=== PATIENT | female | born 1950 | race African-American/Black ===

== ENCOUNTER 2017-08-18 17:01 | Outpatient (CLI) | payer OTHER ==
[2014-02-26 17:07] VITALS: BP 169/91
--- NOTE | 2017-08-18 17:47 | Diagnostic Imaging Report ---
SIOMARA EVANS [facility] [address] [facility] [address] [place] [address]. [id number] Report Submission Date: Aug 18, 2017 5:30:08 PM CDT Patient Study Name: GERGG MCHUGH Date: Aug 18, 2017 5:09:16 PM CDT Modality Type: DX Gender: F Description: SPINE : 54 Institution: [facility] Physician: SIOMARA EVANS Cervical spine History: C-SPINE, NECK PAIN THAT RADIATES TO THE RIGHT SIDE FOR ABOUT 3 MONTHS, NO KNOWN INJURY, FUSION IN 2007 (Hx) / ITS.REASON neck pain; fusion 2007 AP, lateral and odontoid projections of the cervical spine demonstrate anterior fusion with presence of interbody fusion plugs at C4 through C6. The fusion does appear to be solid and the hardware is intact. Alignment of the cervical spine is normal. There is multilevel facet arthropathy. Spinous processes are intact. The dens is intact. Impression: Status post anterior fusion from C4 through C6. The fusion does appear to be solid and the hardware is intact. Multilevel facet arthropathy. Electronically signed on Aug 18, 2017 5:30:08 PM CDT by: Lia NOONAN
== END 2017-08-18 17:02 ==
LOC: RAD 17:01
PROVIDERS: ATTEND Family Medicine
DX: M54.2 Cervicalgia (principal)
CPT/HCPCS: 72040

== ENCOUNTER 2019-02-20 08:21 | Day surgery (SDC) | payer MEDICARE, OTHER ==
[2014-02-26 17:07] VITALS: BP 169/91
[2019-02-20] MEDS ORDERED: LIDOCAINE HCL 2% PF 100MG/5ML VIAL IJ ONE (08:48)
[2019-02-20] MEDS ORDERED: PROPOFOL 200 MG/20 ML VIAL IV ONE (08:48)
[2019-02-20] MEDS ORDERED: LACTATED RINGERS 1,000 ML IV.SOLN IV ONE (08:48)
--- NOTE | 2019-02-24 10:35 | GI Report ---
DATE OF PROCEDURE: 02/20/2019 REFERRING PHYSICIAN: Dr. Campbell. PROCEDURE PERFORMED: Colonoscopy and polypectomy. SURGEON: Sergio Stephens M.D., [place]. INDICATION FOR PROCEDURE: 68-year-old woman referred for screening. She did have an uncle who had colon cancer. The patient thinks she may have had a polyp many years ago we dont have that report. She denies any change of stools or bleeding. She has had abdominal surgery, a hysterectomy. She has been stable cardiopulmonary-mcclain. PROCEDURE MEDICATION: Propofol, as per Anesthesia. DESCRIPTION OF PROCEDURE: An Olympus video colonoscope was advanced to the rectum. She has a few small diverticula in the sigmoid colon. The colonoscope was slowly advanced to the cecum. There is a 2 mm polyp, flat, near the appendiceal orifice that was cold biopsy removed. The terminal ileum looks normal. On slow withdrawal, the cecum, ascending colon, transverse colon are otherwise unremarkable. Descending colon and sigmoid: A few small diverticula. At 25 cm in the sigmoid there is a 3 mm flat polyp removed with a cold snare and submitted to Pathology. Retroflexion in the rectum was normal. The patient tolerated the procedure well. FINDINGS: Two small polyps removed, one in the sigmoid and one in the cecum. RECOMMENDATIONS: 1. High fiber diet. 2. Pending the pathology of the polyps, consider surveillance colonoscopy in 5 years. SERGIO STEPHENS M.D., F.A.CLachelleP. PAPO/evra R: 02/24/19 Job#: [id number] Cc: Dr. Campbell [facility]ITALPerfecto
== END 2019-02-20 10:20 | disposition home or self-care (01) ==
LOC: OPSURG 08:21
PROVIDERS: ATTEND Internal Medicine Gastroenterology
DX: Z12.11 Encounter for screening for malignant neoplasm of colon (principal); Z80.0 Family history of malignant neoplasm of digestive organs; D12.0 Benign neoplasm of cecum; D12.5 Benign neoplasm of sigmoid colon
CPT/HCPCS: 45380; 88305; J2001; J2704; J7120

== ENCOUNTER 2019-03-21 14:21 | Outpatient (CLI) | payer MEDICARE, OTHER ==
[2014-02-26 17:07] VITALS: BP 169/91
== END 2019-03-21 14:31 ==
LOC: RT 14:21
PROVIDERS: ATTEND Family Medicine
DX: R42 Dizziness and giddiness (principal)
CPT/HCPCS: 36415; 80053; 85027; 93005